=== PATIENT | female | born 1990 | race Caucasian/White ===

== ENCOUNTER 2018-09-27 18:54 | Emergency (ER) | payer MEDICAID ==
[~2018-09-27] VITALS: Ht 170.2 cm; Wt 78.2 kg
[2018-09-27 19:38] VITALS: Ht 170.2 cm; Wt 78.2 kg
[2018-09-27 21:32] VITALS: BP 124/82
== END 2018-09-27 21:32 | disposition home or self-care (01) ==
LOC: ED 18:54
DX: M54.2 Cervicalgia (principal); R05 Cough; J02.9 Acute pharyngitis, unspecified; Y04.8XXA Assault by other bodily force, initial encounter; Y93.89 Activity, other specified; Y92.89 Other specified places as the place of occurrence of the external cause; Y99.8 Other external cause status
CPT/HCPCS: J1885

== ENCOUNTER 2018-10-08 17:55 | Emergency (ER) | payer MEDICAID ==
[~2018-10-08] VITALS: Ht 170.2 cm; Wt 82.1 kg
[2018-10-08 17:59] VITALS: Ht 170.2 cm; Wt 82.1 kg
[2018-10-08 19:49] VITALS: BP 98/53
== END 2018-10-08 19:49 | disposition home or self-care (01) ==
LOC: ED 17:55
DX: G44.209 Tension-type headache, unspecified, not intractable (principal); R11.0 Nausea
CPT/HCPCS: Q0162